=== PATIENT | male | born 1980 | race African-American/Black ===

== ENCOUNTER 2016-09-26 12:59 | Emergency (ER) | payer OTHER ==
[~2016-09-26] VITALS: Ht 170.2 cm; Wt 77.1 kg
[2016-09-26] MEDS ORDERED: FLONASE 0.05%50 MCG NASAL (13:11)
[2016-09-26] MEDS ORDERED: PROVENTIL HFA6.7 G1 INH (13:11)
[2016-09-26] MEDS ORDERED: PREDNISONE 20 M20 MG PO (13:11)
[2016-09-26 14:16] VITALS: BP 131/72
== END 2016-09-26 14:18 | disposition home or self-care (01) ==
LOC: ER 12:59
DX: J30.9 Allergic rhinitis, unspecified (principal); J98.01 Acute bronchospasm; F17.210 Nicotine dependence, cigarettes, uncomplicated; Z71.6 Tobacco abuse counseling

== ENCOUNTER 2018-11-01 23:28 | Emergency (ER) | payer OTHER ==
[~2018-11-01] VITALS: Ht 170.2 cm; Wt 81.7 kg
[~2018-11-01 23:28] MED LIST: FLONASE 0.05%50 MCG NASAL; PREDNISONE 20 M20 MG PO; PROVENTIL HFA6.7 G1 INH
[2018-11-02 00:41] LABS: ABSOLUTE NEUTROPHILS 4.1 thou/uL (1.4-8.2); BASOPHILS 0.8 % (0.0-2.0); EOSINOPHILS 3.2 % (0.0-3.0); HEMATOCRIT 38.9 % (42.0-52.0); HEMOGLOBIN 12.9 gm/dL (14.0-18.0); LYMPHOCYTES 48.5 % (24.0-44.0); MCH 29.3 pg (26.0-34.0); MCHC 33.1 g/dL (28.0-37.0); MCV 88.4 fL (80.0-100.0); MONOCYTES 6.8 % (1.0-8.0); PLATELET COUNT 333 thou/uL (150-400); POLYS 40.7 % (36.0-66.0); RBC 4.41 mil/uL (4.50-6.00)
[2018-11-02 00:44] LABS: ANION GAP 10 mmol/L (7-16); BUN 16 mg/dL (7-18); CALCIUM 9.1 mg/dL (8.5-10.1); CHLORIDE 100 mmol/L (98-107); CO2 28 mmol/L (21-32); CREATININE 1.3 mg/dL (0.7-1.3); GLUCOSE 80 mg/dL (74-106); POTASSIUM 3.8 mmol/L (3.5-5.1); SODIUM 138 mmol/L (136-145)
[2018-11-02 00:50] LABS: DIRECT BILIRUBIN < 0.1 mg/dL (<0.1-0.3); LIPASE 57 U/L (73-393); SGOT 33 U/L (15-37); SGPT 48 U/L (30-65); TOTAL BILIRUBIN 0.3 mg/dL (<0.1-1.0)
[2018-11-02] MEDS ORDERED: CARAFATE 1 GM TA1 G1 PO (01:34)
[2018-11-02 01:52] VITALS: BP 139/91
--- NOTE | 2018-11-02 08:20 | EKG ---
[facility] [place] [address] ELECTROCARDIOGRAM REPORT Name: BELLO YU Room #: [facility] M[facility] Medina#: [id number] Admission: 11/01/18 Attend Phys: Discharge: 11/02/18 Date of : 78 Report #: [id number] THIS REPORT FOR: //name// [facility] ED Test Date: 2018-11-01 Test Time: 23:34:14 Pat Name: BELLO YU Department: Room: Gender: Bottle Blower: RACHAEL : 1980 Requested By: Edda Naylor Order Number: [id number] MD: Dewey Noyola Measurements Intervals Dixon Rate: 89 P: 58 UT: 150 QRS: -10 QRSD: 102 T: 0 QT: 387 QTc: 471 Interpretive Statements Sinus rhythm Baseline wander in lead(s) V1 No previous ECG available for comparison Electronically Signed On 11-02-2018 8:20:20 CDT by Dewey Noyola [email or web address] <ELECTRONICALLY SIGNED> By: Dewey Noyola MD, [facility] 11/02/18 0820 [id number] Dewey Noyola MD, [facility] /EPI
== END 2018-11-02 02:00 | disposition home or self-care (01) ==
LOC: ER 23:28
PROVIDERS: Emergency Medicine
DX: K21.9 Gastro-esophageal reflux disease without esophagitis (principal); F17.210 Nicotine dependence, cigarettes, uncomplicated